=== PATIENT | female | born 1975 | race Caucasian/White ===

== ENCOUNTER → 2017-12-25 | Outpatient (CLI) | payer MEDICAID | LOC: CIMAGING 10-09 14:04 | PROVIDERS: ATTEND Family Medicine | DX: Z12.31 Encounter for screening mammogram for malignant neoplasm of breast (principal) ==

== ENCOUNTER → 2017-12-31 | Outpatient (CLI) | payer MEDICAID | LOC: CIMAGING 12:33 | PROVIDERS: ATTEND Family Medicine | DX: N60.02 Solitary cyst of left breast (principal) | CPT/HCPCS: 76641-PO ==

== ENCOUNTER → 2018-01-19 | Outpatient (CLI) | payer MEDICAID ==
[~2018-01-19] MED LIST: BUPIVACAINE 0.5% 30 ML SDV ONE; LIDOCAINE 1% 300 MG/30 ML SDV ONE; THROMBIN (BOVINE) 5,000 UNIT VIAL TP ONE
== END ==
LOC: FIMAGING 07:27
PROVIDERS: ATTEND Family Medicine
PROC: 0HBT3ZX Excision of Right Breast, Percutaneous Approach, Diagnostic (ICD-10-PCS; principal; 2018-01-19)
DX: N60.31 Fibrosclerosis of right breast (principal); R92.0 Mammographic microcalcification found on diagnostic imaging of breast; N60.41 Mammary duct ectasia of right breast; N60.81 Other benign mammary dysplasias of right breast

== ENCOUNTER → 2018-05-01 | Outpatient (CLI) | payer MEDICAID | LOC: CIMAGING 14:03 | DX: S80.02XA Contusion of left knee, initial encounter (principal); M25.462 Effusion, left knee | CPT/HCPCS: 73564-PO ==

== ENCOUNTER → 2019-03-03 | Outpatient (CLI) | payer MEDICAID | LOC: CIMAGING 09:29 | DX: Z12.31 Encounter for screening mammogram for malignant neoplasm of breast (principal) ==